=== PATIENT | female | born 1970 | race African-American/Black ===

== ENCOUNTER 2021-08-18 16:25 | Emergency (ER) | payer MEDICAID ==
[~2021-08-18] VITALS: Ht 170.2 cm; Wt 83.9 kg
--- NOTE | 2021-08-18 16:45 | NUR ---
[id number] FROM [place] C/O HEARING VOICES "SAYING THINGS AGAINST ME", VISUAL HALLUCINATION "SHADOWS REACHING TOWARD ME", DENIES SI/HI. ALERT AND ORIENTED X4. DENIES PAIN. IN ROOM AIR AND DENIES SOB. RESPIRATION REGULAR AND UNLABORED. WANDING DONE. WILL CONTINUE TO MONITOR THE PATIENT.
[2021-08-18 17:07] LABS: BASOPHILS % (AUTO) 0.2 % (0.0-2.0); HEMATOCRIT 40 % (33-45); LYMPHOCYTES # (AUTO) 0.7 K/uL (0.8-4.8); LYMPHOCYTES % (AUTO) 6.6 % (20.0-44.0); MEAN CORPUSCULAR HGB CONC 32 g/dl (31.0-36.0); MEAN CORPUSCULAR VOLUME 88 fL (82-100); MONOCYTES # (AUTO) 0.3 K/uL (0.1-1.30); MONOCYTES % (AUTO) 2.8 % (2.0-12.0); NEUTROPHILS % (AUTO) 90.4 % (43.0-81.0); PLATELET COUNT (AUTO) 235 K/uL (150-450); RED BLOOD CELL COUNT(AUTO) 4.55 MIL/uL (4.0-5.2); WHITE BLOOD COUNT (AUTO) 11.1 K/uL (4.3-11.0)
--- NOTE | 2021-08-18 17:19 | NUR ---
COVID SWAB DONE AND SENT TO LAB
[2021-08-18] MEDS ORDERED: OLANZAPINE 5 MG TABLET ONE (17:22)
--- NOTE | 2021-08-18 17:29 | NUR ---
URINE COLLECTED AND SENT TO THE LAB.
[2021-08-18] MEDS ORDERED: OLANZAPINE 5 MG TABLET PO ONE (17:30)
[2021-08-18 17:31] LABS: CALCIUM, SERUM 9.6 mg/dL (8.5-10.1); CARBON DIOXIDE 23 mmol/L (21-32); CHLORIDE 103 mmol/L (98-107); CREATININE 1.5 mg/dL (0.6-1.3); GLUCOSE 121 mg/dL (74-106); POTASSIUM 4.5 mmol/L (3.5-5.1); SODIUM SERUM 140 mmol/L (136-145); UREA NITROGEN, BLOOD 19 mg/dL (7-18)
[2021-08-18 17:39] LABS: ALANINE AMINOTRANSFERASE 31 U/L (12-78); ALBUMIN 4.4 g/dL (3.4-5.0); ALKALINE PHOSPHATASE 86 U/L (46-116); ASPARTATE AMINOTRANSFERASE 39 U/L (15-37); BILIRUBIN,DIRECT 0.2 mg/dL (0.0-0.2); BILIRUBIN,TOTAL 0.6 mg/dL (0.2-1.0); TOTAL PROTEIN, SERUM 8.3 g/dL (6.4-8.2)
[2021-08-18 17:45] LABS: ALCOHOL, BLOOD < 3 mg/dL (0-0)
[2021-08-18 18:11] LABS: BILIRUBIN,URINE NEGATIVE (NEGATIVE); COLOR,URINE YELLOW (YELLOW); LEUKOCYTE ESTERASE ,URINE NEGATIVE (NEGATIVE); NITRITE, URINE NEGATIVE (NEGATIVE); PH,URINE 5.5 (5.0-8.0); PROTEIN,URINE NEGATIVE (NEGATIVE); UGLUCOSE NEGATIVE (NEGATIVE); UROBILINOGEN,URINE 0.2 EU/dL (0.2)
[2021-08-18 18:35] LABS: BACTERIA,URINE RARE /HPF (None Seen); WBC,URINE 0-2 /HPF (0-3)
[2021-08-18 18:36] LABS: MUCUS,URINE Few /LPF (None Seen)
--- NOTE | 2021-08-18 20:59 | NUR ---
FACESHEET AND CLINICALS FAXED TO [facility].
[2021-08-18] MEDS ORDERED: ACETAMINOPHEN ES 500 MG TABLET PO ONE (22:00)
[2021-08-18] MEDS ORDERED: ACETAMINOPHEN ES 500 MG TABLET ONE (22:00)
--- NOTE | 2021-08-18 23:01 | NUR ---
PROVIDED PT WITH FOOD AND WATER, WILL CONTINUE TO MONITOR
[2021-08-19] MEDS ORDERED: GABAPENTIN 300 MG CAPSULE ONE ×2 (01:02→09:42)
[2021-08-19] MEDS ORDERED: GABAPENTIN 100 MG CAPSULE PO ONE ×2 (01:30→10:00)
--- NOTE | 2021-08-19 04:29 | NUR ---
PT IS ASLEEP AND EASILY AROUSABLE, CONNECTED TO MONITOR. WILL CONTINUE TO MONITOR.
[2021-08-19] MEDS ORDERED: diphenhydrAMINE HCL 50 MG CAPSULE ONE (09:42)
[2021-08-19] MEDS ORDERED: diphenhydrAMINE HCL 25 MG CAPSULE PO ONE (10:00)
[2021-08-19 11:17] VITALS: BP 133/91
--- NOTE | 2021-08-19 11:17 | NUR ---
Patient discharged to home in stable condition. Written and verbal after care instructions given. Patient verbalizes understanding of instruction.
--- NOTE | 2021-08-19 13:05 | NUR ---
"SS Note: Pt. Is a 50-year-old Black female who demonstrates adequate insight to the reason for hospitalization. Per pt., she presents to the ER for hearing voices. Pt. was oriented x4, alert, and cooperative. During interview, pt. was capable of following directions and appeared unkempt. Pt.s speech was at a normal rate and pt.s mood was elevated. Pt. reported no hx of mental health, denies suicidal ideation, or homicidal ideation. Pt. denies auditory hallucinations, visual hallucinations, paranoia, or delusions. Pt. stated that she uses crystal meth and marijuana yesterday, so she started to hallucinate. Per pt., crystal meth is new to her. SW explored pt.s living situation. Per pt., she is currently homeless, but her family are supportive. Pt. can go stay with her son Manjinder when she wants. Pt. states that she is feeling better and wants to be discharge. Per pt., she will go stay with her son upon discharge in [place]. Pt. has a psychiatrist [Dr. Rice] and talks to her weekly via phone. SW suggested pt. to follow-up with her psychiatrist upon discharge. Pt. was at [facility] 2 days ago but left due to the environment. ИРИНА gave pt. a list of rehab facilities upon pt.'s request. Plan: ИРИНА provided available resources and pt. accepted. Per pt., she will go stay with her son in [place]. Pt. signed homeless waiver and placed it in chart. Resources Provided: Year-round shelters: [facility] [address] [place] [place] [address] ; [facility] [address] [place] [address]; [facility] [address] [facility] [address] Winter Shelters: Rhonda Proctor Provider: [facility] [place] Address: [address], [address] # of Beds: 47 Population Served: [facility] 6 | [facility] Iris Latham [place] Provider: [facility] Address: [address] [facility], [address] # of Beds: 66 Population Served: Jenna Lo [place] Provider: [facility] Address: [address] [facility], [address] # of Beds: 56 Population Served: Jenna Brandyn Proctor Provider: [facility] Address: [address] [facility], [address] # of Beds: 49 Population Served: [facility] 8 | [facility] Provider: [facility] Address: [address] [facility], [address] # of Beds: 37 Population Served: [facility] Hygiene: [facility] [address] [facility] ; [place] [facility] [address] [facility] ; [facility] [address] [facility] [place] . Food Resources: [place] [facility] at [facility]- [address] [facility]; Meet Each Need with Dignity ([facility]) [address] [facility]; [facility] [address] [facility]; [facility] [address] [facility]. Mental Health resources provided: [facility] [address] [place], [place] [phone] ; [facility] [address] [facility] [address], [place], [place] [id number] ; Ailin Aldridge [facility] [address] [place] [address] ; [facility] [address] [place], [place] [id number] Healthcare Clinics: [facility] [address] [facility], [address] [place]. [place] ; [facility] [address] [facility] [address] [place] [address]; [facility] [address] [facility] [phone]) [phone] Counseling--Outpatient [facility] [address] [place], [place] [address] (Specializes in in-depth psychotherapy for emotional distress: anxiety, depression, interpersonal conflicts, life transitions, childhood abuse) [facility] [address] [place], [place] [phone] (Assist with solving problem marital difficulties, separation & divorce, aging parents, & grief, chronic & terminal illness) [facility] [address] [place] [address] (Deal with loss & grief, anxiety, marital difficulties) Homebound/Mental Health Services [address] [facility] [address] [place] [address] (Provide in-home mental services to people who are incapable of leaving their homes) [facility] Elder[facility] Senior Service/Resource Center [address] [place] [address] [facility] [address] [place] [address] PSYCHIATRIC OUTPATIENT SERVICES [facility] Partial Hospitalization and Intensive Outpatient Program (Managed Care and [place] Only)[address] [facility] [phone] [facility] Partial Hospitalization and Outpatient Bahubiq[address] [facility] [address] [place], [place] [phone] [facility] Cbw[address] [facility] [address] [place], [place] [phone] [facility] Partial Hospitalization and Outpatient Puprzvi[address]142 Braden Ramos [place], [phone] Substance Abuse resources provided included: [facility] Substance Abuse Self-Helpline (SASH) ; [facility]LP [address] [facility] [phone] ; [facility] [address] [facility] [address] ; [facility] [address] [facility] [place] [address] ; [facility] [place] [address] [facility] [phone] ; [facility] [address] [facility] [address] ; [facility] [address] [phone] ; [facility] Substance Abuse Helpline(SAS)[facility] ; [facility] Family Counseling ; [facility]; [facility] [place]; [facility] [place]; [facility]; [facility] [place]; [facility]; [facility] [place]; [facility] [place]; Alcoholics Anonymous -SFV; Mm-Aejh-Sbjvfjb ; Marijuana Anonymous -SFV; Narcotics Anonymous www.na.org;"
== END 2021-08-19 11:18 | disposition home or self-care (01) ==
LOC: ER 16:25
DX: F29 Unspecified psychosis not due to a substance or known physiological condition (principal); F15.10 Other stimulant abuse, uncomplicated; Z20.822 Contact with and (suspected) exposure to COVID-19; F20.9 Schizophrenia, unspecified; Z88.0 Allergy status to penicillin; Z88.2 Allergy status to sulfonamides; N28.9 Disorder of kidney and ureter, unspecified; I10 Essential (primary) hypertension; F10.10 Alcohol abuse, uncomplicated; Y90.0 Blood alcohol level of less than 20 mg/100 ml
CPT/HCPCS: 36415; 80048; 80076; 80143; 80307; 80320; 81001; 85025; 87426; 99285; C9803; Q0163; G0480